=== PATIENT | female | born 1960 | race Caucasian/White ===

== ENCOUNTER 2018-12-17 06:56 | Emergency (ER) | payer OTHER ==
[~2018-12-17] VITALS: Ht 157.5 cm; Wt 53.5 kg
[~2018-12-17 06:56] MED LIST: CLON0.2T PO; METF500T PO
--- NOTE | 2018-12-17 07:07 | NUR ---
Report given to Margarette georges.
--- NOTE | 2018-12-17 07:15 | NUR ---
Dr Partida is at bedside doing the medical screening exam, pending MD orders.
[2018-12-17] MEDS ORDERED: IV NORMAL SALINE 1000 ML BAG IV ONE ×3 (07:30→09:00)
[2018-12-17] MEDS ORDERED: METF-440 PO (07:37)
[2018-12-17] MEDS ORDERED: AMLO2.5T4 PO (07:37)
[2018-12-17 07:50] LABS: BASOPHILS # (AUTO) 0.1 K/uL (0.0-8.0); BASOPHILS % (AUTO) 0.9 % (0.0-2.0); HEMATOCRIT 42.9 % (31.2-41.9); HEMOGLOBIN 14.5 g/dL (10.9-14.3); LYMPHOCYTES # (AUTO) 2.7 K/uL (20.0-40.0); LYMPHOCYTES % (AUTO) 20.7 % (20.5-51.5); MEAN CORPUSCULAR HEMOGLOBIN 30.4 uug (24.7-32.8); MEAN CORPUSCULAR HGB CONC 34 g/dL (32.3-35.6); MEAN CORPUSCULAR VOLUME 89.5 fL (75.5-95.3); MONOCYTES % (AUTO) 7.3 % (0.0-11.0); NEUTROPHILS # (AUTO) 9.2 K/uL (1.8-8.9); NEUTROPHILS % (AUTO) 71.1 % (38.5-71.5); PLATELET COUNT (AUTO) 448 K/uL (179-408); RED BLOOD CELL COUNT(AUTO) 4.79 MIL/uL (3.63-4.92); WHITE BLOOD COUNT (AUTO) 12.9 K/uL (3.8-11.8)
[2018-12-17 07:53] LABS: CREATININE 1.3 mg/dL (0.6-1.3); POTASSIUM 3.6 mmol/L (3.5-5.1)
[2018-12-17 07:58] LABS: BILIRUBIN,DIRECT 0.1 mg/dL (0.0-0.2); BILIRUBIN,TOTAL 0.7 mg/dL (0.2-1.0); TOTAL PROTEIN, SERUM 6.9 g/dL (6.4-8.2)
[2018-12-17 08:06] LABS: THYROID STIMULATING HORMONE 0.926 mIU/mL (0.358-3.740)
--- NOTE | 2018-12-17 08:26 | NUR ---
Patient is resting comfortably in bed with eyes closed. PATIENT IS PAIN FREE.
--- NOTE | 2018-12-17 09:59 | NUR ---
Note undone in EDM - 12/17/18 at 1005 by SUSHIL Patient discharged to home in stable conditon. Written and verbal after care instructions given. Patient verbalizes understanding of instructions. No vomiting seen while in ER. Patient says that she feels much better. She denies palpitations, denies chest pains & denies dizziness. Patient discharged to home in stable conditon & birsk steady gait. Written and verbal after care instructions given to patient. Patient verbalizes understanding & compliance of instructions.
--- NOTE | 2018-12-17 09:59 | NUR ---
IV removed. Catheter intact and site benign. Pressure and 4x4 gauze applied to site. No bleeding noted. Patient says that she feels much better. Patient denies chest pains , denies palpitations, denies dizziness. No vomiting seen while in ER. Patient discharged to home in stable conditon with brisk steady gait. Written and verbal after care instructions given to patient. Patient verbalizes understanding & compliance of instructions.
== END 2018-12-17 10:04 | disposition home or self-care (01) ==
LOC: ER 07:02
DX: E86.0 Dehydration (principal); R00.2 Palpitations; I10 Essential (primary) hypertension; E11.9 Type 2 diabetes mellitus without complications; F41.9 Anxiety disorder, unspecified; F32.9 Major depressive disorder, single episode, unspecified; F17.210 Nicotine dependence, cigarettes, uncomplicated; Z88.8 Allergy status to other drugs, medicaments and biological substances; Z79.899 Other long term (current) drug therapy; Z79.84 Long term (current) use of oral hypoglycemic drugs
CPT/HCPCS: 36415; 70030-TC; 71045; 84443; 85025; 93005; A4663; J7030

== ENCOUNTER 2019-10-05 17:13 | Inpatient (IN) | payer OTHER ==
[~2019-10-05] VITALS: Ht 160 cm; Wt 51.3 kg
[~2019-10-05 17:13] MED LIST changes: +AMLO2.5T4 PO; +METF-440 PO; -METF500T PO
--- NOTE | 2019-10-05 17:15 | NUR ---
Patient ambulated with steady gait. A&O x4. c/o N / V since 0500am today. speech is clear and able to make needs known / follow commands. Breathing even and unlabored. denies any cough or SOB. denies any CP / GONZALEZ / blurred vision / dizziness. patient also c/o lower abd pain. more left than right. Safety precautions implemented. s/r up x2
--- NOTE | 2019-10-05 17:15 | NUR ---
Dr. Partida at bedside for MSE
[2019-10-05] MEDS ORDERED: ONDANSETRON 4 MG/2 ML VIAL IV ONE (17:30)
[2019-10-05] MEDS ORDERED: PANTOPRAZOLE SODIUM 40 MG VIAL IV ONE (17:30)
[2019-10-05] MEDS ORDERED: IV NORMAL SALINE 1000 ML BAG IV ONE (17:30)
[2019-10-05] MEDS ORDERED: ONDANSETRON 4 MG/2 ML VIAL ONE (17:32)
[2019-10-05] MEDS ORDERED: PANTOPRAZOLE SODIUM 40 MG VIAL ONE (17:33)
[2019-10-05 17:34] LABS: BASOPHILS # (AUTO) 0.1 K/uL (0.0-8.0); BASOPHILS % (AUTO) 0.3 % (0.0-2.0); EOSINOPHILS # (AUTO) 0.1 K/uL (0.0-0.7); EOSINOPHILS % (AUTO) 0.3 % (0.0-7.0); HEMATOCRIT 48.9 % (31.2-41.9); HEMOGLOBIN 16.4 g/dL (10.9-14.3); LYMPHOCYTES # (AUTO) 1.9 K/uL (20.0-40.0); LYMPHOCYTES % (AUTO) 9.2 % (20.5-51.5); MEAN CORPUSCULAR HEMOGLOBIN 29.6 uug (24.7-32.8); MEAN CORPUSCULAR HGB CONC 33 g/dL (32.3-35.6); MEAN CORPUSCULAR VOLUME 88.5 fL (75.5-95.3); MONOCYTES # (AUTO) 0.6 K/uL (2.0-10.0); MONOCYTES % (AUTO) 2.7 % (0.0-11.0); NEUTROPHILS # (AUTO) 18.3 K/uL (1.8-8.9); NEUTROPHILS % (AUTO) 87.5 % (38.5-71.5); PLATELET COUNT (AUTO) 492 K/uL (179-408); RED BLOOD CELL COUNT(AUTO) 5.52 MIL/uL (3.63-4.92); WHITE BLOOD COUNT (AUTO) 20.9 K/uL (3.8-11.8)
[2019-10-05] MEDS ORDERED: LABETALOL HCL 100 MG/20 ML VIAL ONE (17:40)
[2019-10-05 17:42] LABS: CREATININE 1.3 mg/dL (0.6-1.3); POTASSIUM 3.4 mmol/L (3.5-5.1)
[2019-10-05] MEDS ORDERED: LABETALOL HCL 100 MG/20 ML VIAL IV ONE ×2 (17:45→18:30)
[2019-10-05 17:54] LABS: BILIRUBIN,DIRECT 0.1 mg/dL (0.0-0.2); BILIRUBIN,TOTAL 0.4 mg/dL (0.2-1.0); TOTAL PROTEIN, SERUM 9.5 g/dL (6.4-8.2)
[2019-10-05] MEDS ORDERED: CLONIDINE HCL 0.2 MG TABLET PO ONE (18:00)
[2019-10-05] MEDS ORDERED: CLONIDINE HCL 0.2 MG TABLET ONE (18:01)
--- NOTE | 2019-10-05 18:09 | NUR ---
Patient taken to CT scan via wheelchair
[2019-10-05 18:19] LABS: *BILIRUBIN,URIN NEGATIVE (NEGATIVE); *BLOOD, URINE 2+ (NEGATIVE); *CLARITY,URINE CLEAR (CLEAR); *COLOR,URINE YELLOW (YELLOW); *KETONES,URINE 1+ (NEGATIVE); *UROBILINOGEN,URINE 0.2 E.U./dl (NORMAL); LEUKOCYTE ESTERASE ,URINE NEGATIVE (NEGATIVE); NITRITE, URINE NEGATIVE (NEGATIVE); UGLUCOSE 2+ (NEGATIVE)
--- NOTE | 2019-10-05 18:20 | NUR ---
Patient back from CT scan
[2019-10-05 18:25] LABS: RBC,URINE 20-50 /HPF (0-3); SQUAMOUS EPITHELIAL CELL,UR FEW /HPF (NONE SEEN); WBC,URINE 0-3 /HPF (0-3)
[2019-10-05] MEDS ORDERED: POTASSIUM CHLORIDE 50 ML IV SCH ×2 (18:45)
[2019-10-05] MEDS ORDERED: POTASSIUM CHLORIDE 100 ML ONE (18:56)
[2019-10-05] MEDS ORDERED: METOCLOPRAMIDE HCL 10 MG/2 ML VIAL IV ONE (19:00)
[2019-10-05] MEDS ORDERED: MORPHINE SULFATE 4 MG/1 ML DISP.SYRIN IV ONE (19:00)
[2019-10-05] MEDS ORDERED: METOCLOPRAMIDE HCL 10 MG/2 ML VIAL ONE (19:11)
[2019-10-05] MEDS ORDERED: NITROGLYCERIN OINT 1 GM PACKET TP ONE ×2 (19:15→19:20)
--- NOTE | 2019-10-05 19:16 | NUR ---
CALLED [facility] FOR PANEL CALL
[2019-10-05] MEDS ORDERED: MORPHINE SULFATE 4 MG/1 ML DISP.SYRIN ONE (19:21)
--- NOTE | 2019-10-05 19:24 | NUR ---
NITRO PASTE APPLIED TO LEFT CHEST.
--- NOTE | 2019-10-05 19:36 | NUR ---
Pt. admitted to [facility] , under care of Dr. FOX Belongs List completed
--- NOTE | 2019-10-05 20:00 | NUR ---
1st bag of KCL done infusing. no ASE noted
--- NOTE | 2019-10-05 20:18 | NUR ---
Report given to Leonora STARKS
--- NOTE | 2019-10-05 20:47 | NUR ---
KCL to finish infusing in [facility]. Leonora STARKS aware
[2019-10-05] MEDS ORDERED: MAGNESIUM HYDROXIDE 30 ML LIQUID UDC PO PRN (21:00)
[2019-10-05] MEDS ORDERED: TEMAZEPAM 15 MG CAPSULE PO PRN (21:00)
[2019-10-05] MEDS ORDERED: MORPHINE SULFATE 2 MG/1 ML DISP.SYRIN IV PRN (21:00)
[2019-10-05] MEDS ORDERED: DOCUSATE SODIUM 100 MG CAPSULE PO SCH (21:00)
[2019-10-05] MEDS ORDERED: ENOXAPARIN SODIUM 40 MG/0.4 ML DISP.SYRIN SQ SCH (21:00)
[2019-10-05] MEDS ORDERED: ONDANSETRON 4 MG/2 ML VIAL IV PRN (21:00)
[2019-10-05] MEDS ORDERED: ACETAMINOPHEN 325 MG TABLET PO PRN (21:00)
[2019-10-05] MEDS ORDERED: hydrALAZINE HCL 25 MG TABLET PO PRN (21:00)
[2019-10-05] MEDS ORDERED: DEXTROSE 50% 50 ML DISP.SYRIN IV PRN (21:00)
--- NOTE | 2019-10-05 21:00 | NUR ---
received patient from ER , awake , oriented , able to follow command , no distress , on ra , iv rac intact , 2nd kcl iv infused . , denies chest pain ambulatory
--- NOTE | 2019-10-05 21:00 | NUR ---
CAME IN [facility] CAT[facility] RIGHT CHEST PLACED 20 14 FOR PREVIOUS CHEMO TREATMENT
[2019-10-05 21:10] VITALS: BP 147/87
[2019-10-05] MEDS: AMLODIPINE 5 MG TABLET PO SCH (21:54)
[2019-10-05] MEDS: METOPROLOL TARTRATE 25 MG TABLET PO SCH (21:54)
[2019-10-05] MEDS: CLONIDINE HCL 0.2 MG TABLET PO SCH (22:00)
[2019-10-05] MEDS: BLOOD SUGAR DIAGNOSTIC 1 EACH STRIP VI SCH (22:30)
--- NOTE | 2019-10-05 23:00 | NUR ---
patient was taken down for ct of the chest
--- NOTE | 2019-10-05 23:20 | NUR ---
pat is back in the room from ct of the chest . vs taken , no distress
[2019-10-06] VITALS: BP 133/71
--- NOTE | 2019-10-06 01:30 | NUR ---
LOC AND SKIN STATUS AND NUTRITIONAL BEING MONITORED , CURRENTLY ON SEVERAL BLLOD PRESSURE MEDICATION Addendum: 10/06/19 at 0130 by SASHA GRAYSON RN Amended: Links added.
--- NOTE | 2019-10-06 01:31 | NUR ---
WILL UNDERSTAND VERBALIZES ROUTINE FOR CHECKING BLOOD PRESSURE AND BLOOD SUGAR CHECK DURING HOSPITALIZATION Addendum: 10/06/19 at 0132 by SASHA GRAYSON RN Amended: Links added. Addendum: 10/06/19 at 0133 by SASHA GRAYSON RN Amended: Links added.
--- NOTE | 2019-10-06 01:33 | NUR ---
PATIENT WILL MAINTAIN ADE[place]UTE BLOOD PRESSURE AND RESPONDS TO TREATMENT IN MAINTAING ACCEPTABLE VALUES FOR SBP Addendum: 10/06/19 at 0133 by SASHA GRAYSON RN Amended: Links added.
[2019-10-06] MEDS: INSULIN REGULAR, HUMAN 300 UNIT/3 ML VIAL SQ PRN ×2 (01:41→12:02)
[2019-10-06 04:00] VITALS: BP 127/49
[2019-10-06 04:20] VITALS: BP 122/49
--- NOTE | 2019-10-06 06:00 | NUR ---
will follow up with [facility] with day shift , to call [facility] service
--- NOTE | 2019-10-06 06:00 | NUR ---
awake oriented , denies distress , vs stable sr , denies pain nausea and vomiting
[2019-10-06] MEDS: BLOOD SUGAR DIAGNOSTIC 1 EACH STRIP VI SCH ×2 (06:12→11:38)
[2019-10-06 06:30] LABS: BASOPHILS # (AUTO) 0.1 K/uL (0.0-8.0); BASOPHILS % (AUTO) 0.3 % (0.0-2.0); HEMATOCRIT 39.7 % (31.2-41.9); HEMOGLOBIN 13.5 g/dL (10.9-14.3); LYMPHOCYTES # (AUTO) 3.3 K/uL (20.0-40.0); LYMPHOCYTES % (AUTO) 14.7 % (20.5-51.5); MEAN CORPUSCULAR HEMOGLOBIN 30.3 uug (24.7-32.8); MEAN CORPUSCULAR HGB CONC 34 g/dL (32.3-35.6); MEAN CORPUSCULAR VOLUME 89.1 fL (75.5-95.3); MONOCYTES # (AUTO) 2.4 K/uL (2.0-10.0); MONOCYTES % (AUTO) 10.5 % (0.0-11.0); NEUTROPHILS # (AUTO) 16.8 K/uL (1.8-8.9); NEUTROPHILS % (AUTO) 74.5 % (38.5-71.5); PLATELET COUNT (AUTO) 448 K/uL (179-408); RED BLOOD CELL COUNT(AUTO) 4.45 MIL/uL (3.63-4.92); WHITE BLOOD COUNT (AUTO) 22.5 K/uL (3.8-11.8)
[2019-10-06 06:39] LABS: THYROID STIMULATING HORMONE 1.807 mIU/mL (0.358-3.740)
[2019-10-06 06:53] LABS: BILIRUBIN,TOTAL 0.4 mg/dL (0.2-1.0); CREATININE 1.6 mg/dL (0.6-1.3); MAGNESIUM 1.5 mg/dL (1.8-2.4); PHOSPHOROUS 4.1 mg/dL (2.5-4.9); POTASSIUM 4.2 mmol/L (3.5-5.1); TOTAL PROTEIN, SERUM 7.6 g/dL (6.4-8.2)
[2019-10-06] MEDS ORDERED: PANTOPRAZOLE SODIUM 40 MG TABLET.DR PO SCH (07:00)
--- NOTE | 2019-10-06 07:15 | NUR ---
Received report from field service poultry technician nurse, patient in bed awake, no distress noted at this time, bed in low position, side rails upx2. Bed alarm on.
[2019-10-06 07:50] VITALS: BP 121/64
[2019-10-06] MEDS ORDERED: METFORMIN HCL 500 MG TABLET PO SCH (08:00)
[2019-10-06] MEDS: CLONIDINE HCL 0.2 MG TABLET PO SCH (08:34)
[2019-10-06] MEDS: AMLODIPINE 5 MG TABLET PO SCH (08:38)
[2019-10-06] MEDS: METOPROLOL TARTRATE 25 MG TABLET PO SCH (08:38)
[2019-10-06 08:43] LABS: ABG BASE EXCESS -1.2 mmol/L; ABG HCO3 18.5 mmol/L; ABG PCO2 20.8 mmHg (35.0-45.0); ABG PH 7.567 (7.350-7.450); ABG PO2 96.5 mmHg (75.0-100.0); ABG SITE LEFT RADIAL; ABG TOTAL HEMOGLOBIN 14.8 G/dL (12.0-16.0); COHb 1.9 % (0.5-1.5); MetHb 0.1 % (0.0-1.5); O2Hb 95.8 % (94.0-97.0); VENT MODE ROOM AIR
[2019-10-06] MEDS ORDERED: MAGNESIUM SULFATE/D5W 100 ML IV SCH (10:00)
[2019-10-06 11:02] VITALS: BP 124/65
[2019-10-06] MEDS ORDERED: CEFTRIAXONE 1 G in IV DEXTROSE 5% 50 ML IV SCH (13:00)
--- NOTE | 2019-10-06 14:06 | NUR ---
Patient asked to leave ama, this personal lines underwriter reached out to MACK Owusu to notify him of patients decision.
--- NOTE | 2019-10-06 15:52 | NUR ---
Patient given AMA form and IV Removed, wristband removed and patient was given information about possible incidents that may occur without proper medical treatment. Patient despite education decided to leave AMA.
[2019-10-07 09:20] LABS: COMPLEMENT, C3 SERUM 138 mg/dL (82-167); COMPLEMENT, C4 SERUM 24 mg/dL (14-44)
[2019-10-07 10:25] LABS: HEPATITIS B SURFACE AB Non Reactive (.); HEPATITIS B SURFACE AG Negative (Negative)
== END 2019-10-06 16:45 | disposition left against medical advice (07) | DRG 640 ==
LOC: ER 17:13 → TELE-TD3 20:40 → TELE3 10-06 12:34
PROVIDERS: ADMIT Hospitalist; ATTEND Hospitalist
DX: E86.0 Dehydration (principal); N17.0 Acute kidney failure with tubular necrosis; E87.6 Hypokalemia; D72.829 Elevated white blood cell count, unspecified; F32.9 Major depressive disorder, single episode, unspecified; F17.210 Nicotine dependence, cigarettes, uncomplicated; F41.9 Anxiety disorder, unspecified; N20.0 Calculus of kidney; Z85.43 Personal history of malignant neoplasm of ovary; Z79.84 Long term (current) use of oral hypoglycemic drugs; D35.02 Benign neoplasm of left adrenal gland; I10 Essential (primary) hypertension; Z90.710 Acquired absence of both cervix and uterus; J43.2 Centrilobular emphysema; Z79.4 Long term (current) use of insulin
CPT/HCPCS: 36415; 36600; 70030-TC; 71045; 71250; 83690; 83735; 84100; 84443; 85025; 85651; 86038; 86160; 86706; 86803; 87340; 93005; 93307; A4663; C9113; G0378; J0696; J1650; J1815; J2270; J2405; J2765; J3475; J3480; J3490; J7030; J7050; J7060

== ENCOUNTER 2022-12-24 16:33 | Inpatient (IN) | payer BC, OTHER ==
[~2022-12-24] VITALS: Ht 157.5 cm; Wt 50.8 kg
[2022-12-24] MEDS ORDERED: XANAX PO (16:54)
[2022-12-24] MEDS ORDERED: IV NORMAL SALINE 500 ML BAG IV ONE (17:00)
[2022-12-24 17:10] LABS: BASOPHILS # (AUTO) 0.3 K/UL (0.0-0.2); EOSINOPHILS # (AUTO) 0.4 K/uL (0.0-0.7); EOSINOPHILS % (AUTO) 2.4 % (0.0-7.0); HEMATOCRIT 40.7 % (31.2-41.9); HEMOGLOBIN 13.8 g/dL (10.9-14.3); LYMPHOCYTES # (AUTO) 1.8 K/uL (0.8-4.8); LYMPHOCYTES % (AUTO) 12.2 % (20.5-51.5); MEAN CORPUSCULAR HEMOGLOBIN 30.5 uug (24.7-32.8); MEAN CORPUSCULAR HGB CONC 34 g/dL (32.3-35.6); MEAN CORPUSCULAR VOLUME 90.1 fL (75.5-95.3); MONOCYTES % (AUTO) 6.5 % (0.0-11.0); NEUTROPHILS # (AUTO) 11.5 K/uL (1.8-8.9); NEUTROPHILS % (AUTO) 76.9 % (38.5-71.5); PLATELET COUNT (AUTO) 512 K/uL (179-408); RED BLOOD CELL COUNT(AUTO) 4.52 MIL/uL (3.63-4.92); RED CELL DISTRIBUTION WIDTH 15.3 % (12.3-17.7); WHITE BLOOD COUNT (AUTO) 14.9 K/uL (3.8-11.8)
[2022-12-24 17:17] LABS: CALCIUM 10.2 mg/dL (8.5-10.1); CARBON DIOXIDE 19 mmol/L (21-32); CHLORIDE 92 mmol/L (98-107); CREATININE 1.6 mg/dL (0.6-1.3); DIFFERENTIAL COMMENT 1; GLUCOSE 161 mg/dL (74-106); POTASSIUM 3.8 mmol/L (3.5-5.1); SODIUM SERUM 127 mmol/L (136-145); UREA NITROGEN, BLOOD 50 mg/dL (7-18)
[2022-12-24 17:30] LABS: ALANINE AMINOTRANSFERASE 33 U/L (14-59); ALBUMIN 3.6 g/dL (3.4-5.0); ALKALINE PHOSPHATASE 73 U/L (50-136); ASPARTATE AMINOTRANSFERASE 24 U/L (15-37); BILIRUBIN,DIRECT 0.1 mg/dL (0.0-0.2); BILIRUBIN,TOTAL 0.3 mg/dL (0.2-1.0); NT-PRO BNP 2243 pg/mL (0-125); TOTAL PROTEIN, SERUM 7.1 g/dL (6.4-8.2)
[2022-12-24 18:40] LABS: LACTIC ACID 3.6 mmol/L (0.4-2.0)
[2022-12-24] MEDS ORDERED: HYDROCODONE/APAP 5-325MG TABLET PO ONE (18:45)
[2022-12-24] MEDS ORDERED: IV LACTATED RINGERS SOLUTION 1,000 ML BAG IV ONE (18:45)
[2022-12-24] MEDS ORDERED: HYDROCODONE/APAP 5-325MG TABLET ONE (18:50)
[2022-12-24] MEDS ORDERED: CEFTRIAXONE 1 G in IV DEXTROSE 5% 50 ML IV ONE (19:00)
[2022-12-24] MEDS ORDERED: CEFTRIAXONE /D5W 50ML IVPB **ER PYXIS IV ONE (19:11)
[2022-12-24] MEDS ORDERED: MAGNESIUM HYDROXIDE 30 ML LIQUID UDC PO PRN (20:00)
[2022-12-24] MEDS ORDERED: REMEDY ESSENTIAL ZINC PASTE 113 GM TP PRN (20:00)
[2022-12-24] MEDS ORDERED: ONDANSETRON 4 MG/2 ML VIAL IV PRN (20:00)
[2022-12-24 21:21] VITALS: BP 110/74; TEMP 98.2; O2SAT 99
[2022-12-24] MEDS: IV NS 1000 ML 1,000 ML IV PRN (22:42)
[2022-12-25 00:10] VITALS: BP 114/68; TEMP 98.3; O2SAT 98
[2022-12-25 04:21] VITALS: BP 152/87; TEMP 98.2; O2SAT 98
[2022-12-25] MEDS: HYDROCODONE/APAP 5-325MG TABLET PO PRN (04:59)
[2022-12-25] MEDS: PANTOPRAZOLE SODIUM 40 MG TABLET.DR PO SCH (06:23)
[2022-12-25] MEDS: IV NS 1000 ML 1,000 ML IV PRN ×2 (06:38→20:17)
[2022-12-25 07:10] LABS: BASOPHILS # (AUTO) 0.1 K/UL (0.0-0.2); BASOPHILS % (AUTO) 0.8 % (0.0-2.0); EOSINOPHILS % (AUTO) 0.3 % (0.0-7.0); HEMATOCRIT 38.4 % (31.2-41.9); LYMPHOCYTES % (AUTO) 31.8 % (20.5-51.5); MEAN CORPUSCULAR HEMOGLOBIN 30.3 uug (24.7-32.8); MEAN CORPUSCULAR HGB CONC 34 g/dL (32.3-35.6); MEAN CORPUSCULAR VOLUME 89.4 fL (75.5-95.3); MONOCYTES # (AUTO) 1.2 K/uL (0.1-1.30); MONOCYTES % (AUTO) 9.5 % (0.0-11.0); NEUTROPHILS # (AUTO) 7.3 K/uL (1.8-8.9); NEUTROPHILS % (AUTO) 57.6 % (38.5-71.5); PLATELET COUNT (AUTO) 486 K/uL (179-408); RED BLOOD CELL COUNT(AUTO) 4.29 MIL/uL (3.63-4.92); RED CELL DISTRIBUTION WIDTH 15.6 % (12.3-17.7); WHITE BLOOD COUNT (AUTO) 12.7 K/uL (3.8-11.8)
[2022-12-25 07:23] LABS: DIFFERENTIAL COMMENT 1
[2022-12-25 07:30] LABS: CALCIUM 8.7 mg/dL (8.5-10.1); CREATININE 0.9 mg/dL (0.6-1.3); MAGNESIUM 1.5 mg/dL (1.8-2.4); PHOSPHOROUS 2.5 mg/dL (2.5-4.9); POTASSIUM 3.3 mmol/L (3.5-5.1)
[2022-12-25 07:34] LABS: THYROID STIMULATING HORMONE 1.791 mIU/mL (0.358-3.740)
[2022-12-25] MEDS: ACETAMINOPHEN 325 MG TABLET PO PRN ×3 (09:33→21:33)
[2022-12-25] MEDS: CEFTRIAXONE 1 G in IV DEXTROSE 5% 50 ML IV SCH (09:34)
[2022-12-25] MEDS ORDERED: POTASSIUM CHLORIDE 20 MEQ TAB.PRT.SR PO SCH (09:45)
[2022-12-25] MEDS: MAGNESIUM SULFATE/D5W 100 ML IV SCH ×2 (10:35→10:45)
[2022-12-25 11:08] VITALS: BP 141/64; TEMP 97.6; O2SAT 99
[2022-12-25 15:11] VITALS: BP 138/86; TEMP 97.6; O2SAT 97
[2022-12-25] MEDS ORDERED: CALC-263 PO (15:58)
[2022-12-25] MEDS ORDERED: AMLO10TA59 PO (15:58)
[2022-12-25] MEDS ORDERED: METF-442 PO (15:58)
[2022-12-25] MEDS ORDERED: SERT25TA PO (15:58)
[2022-12-25 20:30] VITALS: BP 161/81; TEMP 98.4; O2SAT 98
[2022-12-25] MEDS ORDERED: DEXTROSE 50% 50 ML DISP.SYRIN IV PRN (20:45)
[2022-12-25] MEDS: BLOOD SUGAR DIAGNOSTIC 1 EACH STRIP VI SCH (21:37)
[2022-12-25] MEDS: INSULIN REGULAR, HUMAN 300 UNIT/3 ML VIAL SQ PRN (21:40)
[2022-12-26] VITALS (7 sets, daily range): BP systolic 125–189; BP diastolic 70–92; TEMP 97.3–98.3; O2SAT 97–100
[2022-12-26] MEDS: HYDROCODONE/APAP 5-325MG TABLET PO PRN ×2 (02:10→06:21)
[2022-12-26] MEDS: ACETAMINOPHEN 325 MG TABLET PO PRN ×2 (03:55→13:05)
[2022-12-26] MEDS: IV NS 1000 ML 1,000 ML IV PRN ×2 (04:25→11:42)
[2022-12-26] MEDS: PANTOPRAZOLE SODIUM 40 MG TABLET.DR PO SCH (06:13)
[2022-12-26 06:25] LABS: BASOPHILS # (AUTO) 0.1 K/UL (0.0-0.2); BASOPHILS % (AUTO) 0.6 % (0.0-2.0); EOSINOPHILS # (AUTO) 0.1 K/uL (0.0-0.7); EOSINOPHILS % (AUTO) 0.8 % (0.0-7.0); HEMOGLOBIN 13.2 g/dL (10.9-14.3); LYMPHOCYTES # (AUTO) 4.2 K/uL (0.8-4.8); LYMPHOCYTES % (AUTO) 32.4 % (20.5-51.5); MEAN CORPUSCULAR HEMOGLOBIN 30.5 uug (24.7-32.8); MEAN CORPUSCULAR HGB CONC 34 g/dL (32.3-35.6); MONOCYTES # (AUTO) 1.2 K/uL (0.1-1.30); MONOCYTES % (AUTO) 9.4 % (0.0-11.0); NEUTROPHILS # (AUTO) 7.3 K/uL (1.8-8.9); NEUTROPHILS % (AUTO) 56.8 % (38.5-71.5); PLATELET COUNT (AUTO) 462 K/uL (179-408); RED BLOOD CELL COUNT(AUTO) 4.33 MIL/uL (3.63-4.92); RED CELL DISTRIBUTION WIDTH 15.6 % (12.3-17.7); WHITE BLOOD COUNT (AUTO) 12.9 K/uL (3.8-11.8)
[2022-12-26] MEDS: BLOOD SUGAR DIAGNOSTIC 1 EACH STRIP VI SCH ×3 (06:34→16:47)
[2022-12-26 06:59] LABS: DIFFERENTIAL COMMENT 1
[2022-12-26 07:00] LABS: CALCIUM 8.8 mg/dL (8.5-10.1); CREATININE 0.9 mg/dL (0.6-1.3); MAGNESIUM 1.6 mg/dL (1.8-2.4); PHOSPHOROUS 1.9 mg/dL (2.5-4.9); POTASSIUM 3.2 mmol/L (3.5-5.1)
[2022-12-26] MEDS: CEFTRIAXONE 1 G in IV DEXTROSE 5% 50 ML IV SCH (08:31)
[2022-12-26] MEDS ORDERED: AMLODIPINE 5 MG TABLET PO ONE (09:00)
[2022-12-26] MEDS ORDERED: AMLODIPINE 5 MG TABLET PO SCH (09:00)
[2022-12-26] MEDS ORDERED: SERTRALINE HCL 50 MG TABLET PO SCH (09:00)
[2022-12-26] MEDS ORDERED: POTASSIUM CHLORIDE 20 MEQ TAB.PRT.SR PO ONE (09:00)
[2022-12-26] MEDS ORDERED: AMLODIPINE 10 MG TABLET PO SCH (09:00)
[2022-12-26] MEDS ORDERED: Medication Not On Formulary EA (Metformin Hcl 1,000 MG) PO SCH (09:00)
[2022-12-26] MEDS ORDERED: Medication Not On Formulary EA (Sertraline Hcl (Zoloft) 25 MG) PO SCH (09:00)
[2022-12-26] MEDS ORDERED: METFORMIN HCL 500 MG TABLET PO SCH (09:01)
[2022-12-26] MEDS: MAGNESIUM SULFATE/D5W 100 ML IV SCH ×2 (09:35→11:05)
[2022-12-26] MEDS: CLONIDINE HCL 0.2 MG TABLET PO SCH ×2 (09:39→16:41)
[2022-12-26] MEDS: INSULIN REGULAR, HUMAN 300 UNIT/3 ML VIAL SQ PRN ×2 (11:42→16:46)
[2022-12-26] MEDS ORDERED: SWABABLE VALVE TRANSFER SET EA MC ONE (14:33)
[2022-12-26] MEDS ORDERED: IOHEXOL 300MG/ML 100 ML INFUS..BTL ONE (14:33)
[2022-12-26] MEDS ORDERED: IV NORMAL SALINE 250 ML IV ONE (14:33)
[2022-12-26] MEDS ORDERED: NEUTRA PHOS PACKET PO SCH (15:30)
[2022-12-26] MEDS ORDERED: CEPH500C2 PO (19:08)
[2022-12-27] MEDS ORDERED: AMLODIPINE 10 MG TABLET PO SCH (09:00)
[2022-12-28] MEDS ORDERED: METFORMIN HCL 500 MG TABLET PO SCH (18:00)
== END 2022-12-26 20:00 | disposition home or self-care (01) | DRG 682 ==
LOC: ER 16:35 → TELE3 20:38
PROVIDERS: ADMIT Student in an Organized Health Care Education/Training Program; ATTEND Student in an Organized Health Care Education/Training Program
DX: N17.0 Acute kidney failure with tubular necrosis (principal); I21.A1 Myocardial infarction type 2; E87.1 Hypo-osmolality and hyponatremia; E87.20 Acidosis, unspecified; M51.17 Intervertebral disc disorders with radiculopathy, lumbosacral region; M48.07 Spinal stenosis, lumbosacral region; E86.0 Dehydration; M25.78 Osteophyte, vertebrae; M48.061 Spinal stenosis, lumbar region without neurogenic claudication; F32.A Depression, unspecified; F17.210 Nicotine dependence, cigarettes, uncomplicated; Z88.8 Allergy status to other drugs, medicaments and biological substances; Z85.43 Personal history of malignant neoplasm of ovary; I10 Essential (primary) hypertension; D75.839 Thrombocytosis, unspecified; E11.9 Type 2 diabetes mellitus without complications; D72.829 Elevated white blood cell count, unspecified; Z79.84 Long term (current) use of oral hypoglycemic drugs; R55 Syncope and collapse; Z91.81 History of falling
CPT/HCPCS: 36415; 71045; 83605; 83735; 84100; 84295; 84443; 84484; 85025; 87040; 93005; 93307; G0378; J0696; J1815; J3475; J7040; J7120; Q9967